=== PATIENT | female | born 1990 | race African-American/Black ===

== ENCOUNTER 2017-11-21 20:54 | Emergency (ER) | payer SELFPAY ==
[~2017-11-21] VITALS: Ht 157.5 cm; Wt 52.0 kg
[2017-11-21 22:28] VITALS: BP 130/80
== END 2017-11-22 01:26 | disposition home or self-care (01) ==
LOC: ER 20:54
DX: R21 Rash and other nonspecific skin eruption (principal); R03.0 Elevated blood-pressure reading, without diagnosis of hypertension; F12.10 Cannabis abuse, uncomplicated
CPT/HCPCS: 99283